=== PATIENT | male | born 1990 | race Caucasian/White ===

== ENCOUNTER 2020-04-13 12:53 | Emergency (ER) | payer OTHER, MEDICAID, SELFPAY ==
[2020-04-13 13:11] VITALS: BP 160/90; PULSE 103; RESP 20; TEMP 36.8; O2SAT 99
--- NOTE | 2020-04-13 13:31 | CMSP_ITS ---
- If Service Date Differs Date of service: 04/13/20 Time of Service: 13:31 Care Management Safety Plan Chief Complaint: Cl is a 29 year old male who presents in the emergency department for increased anxiety, intermittent thoughts of hurting himself and increased anger. He reports to nursing staff that he has been using Testosterone and Decadron twice a week for the past 8 months, but stopped using 03/26/2020 after a friend who had also been using the same drugs by suicide. CM will respond to ED to assess patient after patient has been medically cleared and assessed by screener. If screener deems patient meets criteria for psychiatric stabilization CM will facilitate interdepartmental huddle with [facility] screener for safety planning considerations and meet with patient to review [facility] policy and safety plan, establish individual wishes for treatment and maintain patient rights. In the interim; please note safety plan below to guide patient care while awaiting further assessment in the ED. SAFETY PLAN: 1. Will remain on suicide precautions and in paper clothes. 2. Will remain in room under direct supervision of one-on-one staff at all times provided by [employer], JIM, SPEECH LANGUAGE PATHOLOGIST PRN aba tutor. 3. May have paper cups, plates, finger foods as well as a metal spoon with which to eat meals. [facility] staff are responsible for removing spoon as soon as patient is done eating. 4. Follow [facility] Management of the Admitted Behavioral Health Patient policy. 5. Comfort bath system only. 6. No personal belongings 7. Visitors: No visitors at this time. 8. Activities: Soft tip markers, paper, books, television if moved to Med/Surg, and other activities at nursing discretion. 8. No telephone privileges at this time. 9. Due to VOLUNTARY status, if patient wishes to leave [facility], the [facility] nephrology social worker must be contacted to re-evaluate patient prior to patient exiting the building. If deemed appropriate for inpatient psychiatric care, safety plan will be established with patient, and care team, to adhere to patient goals, identify restrictions based on behavioral status, address nutrition, and determine allowed personal belongings, tools for hygiene and personal care. As well plan will determine level of activity including ambulation, level of supervision, visitors, and determine privileges based on level of acuity, behaviors and level of engagement by patient.
--- NOTE | 2020-04-13 14:00 | NUR.NOTE ---
Nursing Note:Talking to Mental Health via Face Time.
--- NOTE | 2020-04-13 14:10 | W.ED.GENAD ---
Discharge Plan Disposition Patient Disposition: HOME Condition: Good Discharge Details Chief Complaint: PsychEval Clinical Impression: Depression Primary Care Provider: Jere Mabry ED Provider: Kishore Liriano Discharge Instructions Instructions: Depression (ED) Additional Instructions: Please utilize the resources provided to you by our mental health Associates. Please take 5 mg of [id number] melatonin to help with sleep. Please take this 1 hour prior to going to bed. You can also take a 25 mg Benadryl to help with this. If you notice any worsening of your symptoms, or any new symptoms such as vomiting, diarrhea, fever, chills, shortness of breath, chest pain, numbness, weakness, or fainting , please return immediately to the emergency department for reevaluation. Please follow up with your primary care provider as soon as possible for reassessment and reevaluation and to discuss potential antidepressant options. As always, it was a pleasure participating in your medical care today. Please contact the [employer] assistance line at: [phone] Referrals: Jere Mabry [Primary Care Provider] - Medical Decision Making 29-year-old male who presents today for evaluation of depression. Patient states that 2 weeks ago his friend recently after shooting himself in the head after running away from police. States that this is been challenging for him. He was taking anabolic steroids with this friend for quite some time while working out. He has not taken any steroids since then. He is worried about side effects of not having steroids for 2 weeks. He denies any homicidal or suicidal ideations but he does admit to depressed thinking, and is looking for help and assistance. He denies any auditory or visual hallucinations. He denies any IV or illicit drugs. He does admit to occasional alcohol use but none recently. He denies any previous suicidal attempts. No other complaints at this time. Exam demonstrates no concerning abnormalities. In regards to withdrawal effects from testosterone there are no emergent life-threatening concerns that are of an issue at this point. In regards to his depressed mood he denies any homicidal or suicidal ideations and I see no current clinical indication for emergent psychiatric admission or blood work. However he has asked for help and we have contacted mental health to help with counseling on an outpatient basis. I do feel that the patient will be stable for discharge. He did request a for sleeping which I recommend melatonin with 25 mg dose of Benadryl. At this point do not think he is at this stage requiring emergent antidepressant therapy, but it may be something that he should pursue if he does not have the desired improvement with counseling. Mental health has seen and evaluated the patient and agree that he is stable for discharge. Patient will be discharged with recommended close PCP follow-up, the will have additional resources help set up with mental health on an outpatient basis. I have extensively reviewed the treatment plan and discharge instructions with the patient. I have addressed all patient concerns at this time. The patient was made aware of what symptoms to monitor for that would warrant a return to the emergency department. Discussed the plan with the patient, they demonstrate verbal understanding and agreement with our assessment and plan at this time. HPI General Date/Time Provider Initiated Documentation: 04/13/20 12:57. HPI Narrative: 29-year-old male who presents today for evaluation of depression. Patient states that 2 weeks ago his friend recently after shooting himself in the head after running away from police. States that this is been challenging for him. He was taking anabolic steroids with this friend for quite some time while working out. He has not taken any steroids since then. He is worried about side effects of not having steroids for 2 weeks. He denies any homicidal or suicidal ideations but he does admit to depressed thinking, and is looking for help and assistance. He denies any auditory or visual hallucinations. He denies any IV or illicit drugs. He does admit to occasional alcohol use but none recently. He denies any previous suicidal attempts. No other complaints at this time. General Stated Complaint: PsychEval HALI: 2 Review of Systems All systems reviewed & are unremarkable except as noted in HPI and below Exam Narrative Exam Narrative: 1.Const: Well-nourished, Well-developed, appearing stated age 2.Eyes: PERRL, no conjunctival injection, and symmetrical lids. 3.ENT: Atraumatic external nose and ears. Moist MM. Neck: Symmetric, trachea midline, No thyromegaly. 4.CVS: +S1/S2, No murmurs or gallops. Peripheral pulses 2+ and equal in all extremities. Brisk capillary refill in all extremities. 5.RESP: Unlabored respiratory effort. Clear to auscultation bilaterally. No wheezes rales or rhonchi 6.GI: Soft, Nontender/Nondistended, No hepatosplenomegaly. No guarding or rebound. 7.MSK: Normocephalic/Atraumatic, Extremities w/o deformity or ttp No cyanosis or clubbing, Normal movement of all extremities 8.Skin: Warm, Dry. No rashes or lesions. 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 Sensation grossly intact, no focal neurologic deficits. 10.Psych: (AAO) x3. Appropriate mood and affect Course Vital Signs Vital signs: Vital Signs Temperature 36.8 C 04/13/20 13:11 Pulse 103 H 04/13/20 13:11 Respiratory Rate 20 04/13/20 13:11 Blood Pressure 160/90 H 04/13/20 13:11 Pulse Oximetry 99 04/13/20 13:11 Temperature 36.8 C 04/13/20 13:11 Temperature Source Temporal Artery Scan 04/13/20 13:11 Pulse 103 H 04/13/20 13:11 Respiratory Rate 20 04/13/20 13:11 Blood Pressure 160/90 H 04/13/20 13:11 Blood Pressure Position Sitting 04/13/20 13:11 Pulse Oximetry 99 04/13/20 13:11 Oxygen Delivery Method Room Air 04/13/20 13:11 Oxygen Flow Rate 0 04/13/20 13:11
--- NOTE | 2020-04-13 14:52 | PDOC.MHCN ---
Date of service: 04/13/20 Time of Service: 14:52 Mental Health Crisis Note Presenting Issue How did you arrive at the ED and why did you come: Cl came to the ER on his own for referrals and support. Precipitating Factors Cl denied SI and HI and there were no observations of delusions. Disposition BEHAVIOR: Cl is cooperative and engaged. He is friendly and easy to speak with. EYE CONTACT: Eye contact was good . MOOD: Cl's mood is depressed and anxious at times. He was able to crack a joke here and there as well. He reports that often he feels like he i walking around in a fog. AFFECT: Cl's affect is normal to topic and discussion. APPETITE: Cl reported that his appetite is pretty good. SLEEP(trouble falling/staying asleep: Cl reported that his sleep is disrupted throughout hte night by anxiety. Plan Cl is seeking a referral for counseling and psychiatry. This clinician will put that in. In the mean time Cl was encouraged to outreach to anytime if he needs support. This clinician asked Dr. Liriano to put the [employer] phone number on his D/C paperwork so that he had it as he lives in [place]. Signature Clinician's Name/Title: Kristina Schwartz MS, [facility] Emergency Services Clinician
== END 2020-04-13 14:35 | disposition home or self-care (01) ==
PROVIDERS: Emergency Provider Student in an Organized Health Care Education/Training Program; PCP Physician Assistant Medical
DX: F55.3 Abuse of steroids or hormones (principal); F32.9 Major depressive disorder, single episode, unspecified
CPT/HCPCS: 99283